=== PATIENT | male | born 1960 | race Caucasian/White ===

== ENCOUNTER 2019-01-12 00:12 | Emergency (ER) | payer MEDICARE, MEDICAID ==
[~2019-01-12] VITALS: Ht 172.7 cm; Wt 54.5 kg
[~2019-01-12 00:12] MED LIST: AZIT250T PO; BLOO1EAC70 MC; IBUP-1984 PO; LANC-509 TP
[2019-01-12] MEDS ORDERED: normal saline 1000ML IV soln IV ONE (01:20)
[2019-01-12 01:45] LABS: CLARITY,URINE CLEAR (Clear); COLOR,URINE YELLOW (Yellow); GLUCOSE, URINE >=1000 mg/dl (Neg); KETONES,URINE NEGATIVE (Neg); LEUKOCYTE ESTERASE ,URINE NEGATIVE (Neg); NITRITES, URINE NEGATIVE (Neg); OCCULT BLOOD,URINE NEGATIVE (Neg); PROTEIN,URINE NEGATIVE (Neg); UROBILINOGEN,URINE 0.2 E.U/dL (0.2-1.0)
[2019-01-12 01:53] LABS: UA COLLECTION TYPE VOIDED
[2019-01-12 01:54] LABS: BACTERIA,URINE NONE SEEN /HPF (Neg); RBC,URINE 0-2 /HPF (0-2); SQUAMOUS EPITHELIAL CELL,UR FEW /LPF (FEW); WBC,URINE 0-4 /HPF (0-4)
[2019-01-12 01:58] LABS: BASOPHILS # (AUTO) 0.1 X10'3 (0-0.2); BASOPHILS % (AUTO) 0.7 % (0-1); EOSINOPHILS # (AUTO) 0.2 X10'3 (0-0.9); EOSINOPHILS % (AUTO) 2.5 % (0-6); HEMATOCRIT 42.8 % (42.0-52.0); HEMOGLOBIN 15.1 g/dl (14.0-17.9); LYMPHOCYTES # (AUTO) 2.9 X10'3 (1.1-4.8); LYMPHOCYTES % (AUTO) 32.7 % (21-51); MEAN CORPUSCULAR HEMOGLOBIN 33.9 PG (27.0-31.0); MEAN CORPUSCULAR HGB CONC 35.2 g/dL (33.0-36.5); MEAN CORPUSCULAR VOLUME 96.5 FL (78-98); MONOCYTES # (AUTO) 0.8 X10'3 (0-0.9); MONOCYTES % (AUTO) 8.9 % (2-12); NEUTROPHILS # (AUTO) 4.9 X10'3 (1.8-7.7); NEUTROPHILS % (AUTO) 55.2 % (42-75); PLATELET COUNT 308 X10'3 (140-440); RED BLOOD COUNT 4.44 X10'6 (4.70-6.10); RED CELL DISTRIBUTION WIDTH 12.5 % (11.5-14.5); WHITE BLOOD COUNT 8.9 X10'3 (4.5-11.0)
[2019-01-12 02:24] LABS: ALANINE AMINOTRANSFERASE 24 U/L (12-78); ALBUMIN 3.4 G/DL (3.4-5.0); ALKALINE PHOSPHATASE 128 IU/L (46-116); ANION GAP 4 (8-16); ASPARTATE AMINO TRANSFERASE 10 U/L (10-37); BILIRUBIN,TOTAL 0.5 MG/DL (0.1-1.0); BLOOD UREA NITROGEN 14 MG/DL (7-18); BUN/CREATININE RATIO 17.3 (5.4-32.0); CHLORIDE 102 MMOL/L (99-107); CREATININE 0.81 MG/DL (0.60-1.10); GLUCOSE 315 MG/DL (70-104); LIPASE 185 U/L (73-393); MAGNESIUM 1.8 MG/DL (1.5-2.4); POTASSIUM 4.3 MMOL/L (3.5-5.1); SODIUM 136 MMOL/L (135-145); TOTAL CARBON DIOXIDE 30.5 MMOL/L (24-32); TOTAL PROTEIN 6.8 G/DL (6.4-8.2); eGFR > 90 ML/MIN
[2019-01-12 04:28] VITALS: BP 163/98
== END 2019-01-12 04:30 | disposition home or self-care (01) ==
LOC: ER 00:13
DX: R10.30 Lower abdominal pain, unspecified (principal); R50.9 Fever, unspecified; K62.5 Hemorrhage of anus and rectum; K59.00 Constipation, unspecified; I10 Essential (primary) hypertension; E11.9 Type 2 diabetes mellitus without complications; F32.9 Major depressive disorder, single episode, unspecified; F12.90 Cannabis use, unspecified, uncomplicated; F17.200 Nicotine dependence, unspecified, uncomplicated; Z79.2 Long term (current) use of antibiotics; Z79.1 Long term (current) use of non-steroidal anti-inflammatories (NSAID); Z79.899 Other long term (current) drug therapy
CPT/HCPCS: 36415; 71045; 74176; 80053; 81001; 82948; 83605; 83690; 83735; 84145; 85025; 87040; 99284; J7030

== ENCOUNTER 2020-01-23 10:42 | Emergency (ER) | payer MEDICARE, MEDICAID ==
[~2020-01-23] VITALS: Ht 172.7 cm; Wt 63.6 kg
[2020-01-23 11:01] VITALS: BP 159/98
[2020-01-23] MEDS ORDERED: ibuprofen tablet 400 MG TABLET PO ONE (11:20)
[2020-01-23] MEDS ORDERED: acetaminophen 325mg tablet PO ONE (11:20)
[2020-01-23] MEDS ORDERED: AMOX500C2 PO (11:42)
== END 2020-01-23 12:30 | disposition home or self-care (01) ==
LOC: ER 10:42
DX: K08.89 Other specified disorders of teeth and supporting structures (principal); I10 Essential (primary) hypertension; E11.9 Type 2 diabetes mellitus without complications; F32.9 Major depressive disorder, single episode, unspecified; F12.90 Cannabis use, unspecified, uncomplicated; Z72.89 Other problems related to lifestyle; Z79.2 Long term (current) use of antibiotics; Z79.899 Other long term (current) drug therapy
CPT/HCPCS: 99283

== ENCOUNTER 2020-11-13 17:05 | Emergency (ER) | payer BC, MEDICAID ==
[~2020-11-13] VITALS: Ht 172.7 cm; Wt 53.3 kg
[2020-11-13] MEDS ORDERED: insulin regular, human 10 units/0.1 ml syringe IV ONE (17:35)
[2020-11-13] MEDS ORDERED: normal saline 1000ML IV soln IVB ONE (17:35)
[2020-11-13 18:00] LABS: BASOPHILS # (AUTO) 0.1 X10'3 (0-0.2); BASOPHILS % (AUTO) 0.8 % (0-1); EOSINOPHILS # (AUTO) 0.2 X10'3 (0-0.9); EOSINOPHILS % (AUTO) 2.8 % (0-6); HEMATOCRIT 43.3 % (42.0-52.0); HEMOGLOBIN 14.9 g/dl (14.0-17.9); LYMPHOCYTES # (AUTO) 2.2 X10'3 (1.1-4.8); LYMPHOCYTES % (AUTO) 30.1 % (21-51); MEAN CORPUSCULAR HEMOGLOBIN 33.4 PG (27.0-31.0); MEAN CORPUSCULAR HGB CONC 34.5 g/dL (33.0-36.5); MEAN CORPUSCULAR VOLUME 96.8 FL (78-98); MEAN PLATELET VOLUME 8.4 FL (7.4-10.4); MONOCYTES # (AUTO) 0.6 X10'3 (0-0.9); MONOCYTES % (AUTO) 8.7 % (2-12); NEUTROPHILS # (AUTO) 4.3 X10'3 (1.8-7.7); NEUTROPHILS % (AUTO) 57.6 % (42-75); PLATELET COUNT 268 X10'3 (140-440); RED BLOOD COUNT 4.47 X10'6 (4.70-6.10); RED CELL DISTRIBUTION WIDTH 12.9 % (11.5-14.5); WHITE BLOOD COUNT 7.4 X10'3 (4.5-11.0)
[2020-11-13 18:12] LABS: ALANINE AMINOTRANSFERASE 21 U/L (12-78); ALBUMIN 3.9 G/DL (3.4-5.0); ALBUMIN/GLOBULIN RATIO 1.1 (1.1-1.5); ALKALINE PHOSPHATASE 155 IU/L (46-116); ANION GAP 6 (8-16); ASPARTATE AMINO TRANSFERASE 8 U/L (10-37); BILIRUBIN,TOTAL 0.6 MG/DL (0.1-1.0); BLOOD UREA NITROGEN 16 MG/DL (7-18); BUN/CREATININE RATIO 13.8 (5.4-32.0); CHLORIDE 99 MMOL/L (99-107); CREATININE 1.16 MG/DL (0.60-1.10); POTASSIUM 4.3 MMOL/L (3.5-5.1); SODIUM 136 MMOL/L (135-145); TOTAL PROTEIN 7.6 G/DL (6.4-8.2); eGFR 65 ML/MIN
[2020-11-13 18:16] LABS: GLUCOSE 534 MG/DL (70-104)
[2020-11-13] MEDS ORDERED: lisinopril 10 MG tablet PO ONE (19:10)
[2020-11-13] MEDS ORDERED: NEED-136 SQ (21:24)
[2020-11-13] MEDS ORDERED: LISI20TA28 PO (21:24)
[2020-11-13] MEDS ORDERED: LANTUS SQ (21:24)
[2020-11-13] MEDS ORDERED: METF500T PO (21:24)
[2020-11-13] MEDS ORDERED: PENI500T2 PO (21:25)
[2020-11-13 22:01] VITALS: BP 126/71
== END 2020-11-13 22:03 | disposition home or self-care (01) ==
LOC: ER 17:05
DX: E11.65 Type 2 diabetes mellitus with hyperglycemia (principal); K08.89 Other specified disorders of teeth and supporting structures; I10 Essential (primary) hypertension; F12.90 Cannabis use, unspecified, uncomplicated; Z76.0 Encounter for issue of repeat prescription; Z72.89 Other problems related to lifestyle; Z79.2 Long term (current) use of antibiotics; Z79.899 Other long term (current) drug therapy
CPT/HCPCS: 36415; 80053; 82948; 85025; 96361; 96374; 99283; J1815; J7030

== ENCOUNTER 2021-05-14 10:29 | Emergency (ER) | payer BC, MEDICAID ==
[~2021-05-14] VITALS: Ht 172.7 cm; Wt 61.4 kg
[~2021-05-14 10:29] MED LIST changes: +NEED-136 SQ
[2021-05-14 10:33] VITALS: BP 169/90
[2021-05-14] MEDS ORDERED: NAPR-56 PO (10:39)
[2021-05-14] MEDS ORDERED: HYDR-3965 PO (10:39)
[2021-05-14] MEDS ORDERED: CHLO118M PO (10:39)
[2021-05-14] MEDS ORDERED: DOXY100C43 PO (10:39)
== END 2021-05-14 10:53 | disposition home or self-care (01) ==
LOC: ER 10:30
DX: K04.7 Periapical abscess without sinus (principal); K08.89 Other specified disorders of teeth and supporting structures; I10 Essential (primary) hypertension; E11.9 Type 2 diabetes mellitus without complications; F32.9 Major depressive disorder, single episode, unspecified; F12.90 Cannabis use, unspecified, uncomplicated; Z72.89 Other problems related to lifestyle; Z79.2 Long term (current) use of antibiotics; Z79.899 Other long term (current) drug therapy
CPT/HCPCS: 99283

== ENCOUNTER 2024-01-13 08:34 | Outpatient (CLI) | payer MEDICARE, MEDICAID ==
[~2024-01-13] VITALS: Ht 172.7 cm; Wt 65.8 kg
[~2024-01-13 08:34] MED LIST changes: +CHLO118M PO
[2024-01-13] MEDS: albuterol 2.5 MG/3 ML nebule NEB ONE (09:11)
[2024-01-13 09:13] VITALS: PULSE 76; RESP 16; O2SAT 97
[2024-01-13 09:27] VITALS: PULSE 86; RESP 16
== END 2024-01-13 23:59 | disposition home or self-care (01) ==
LOC: RT 08:34
PROVIDERS: ATTEND Nurse Practitioner Primary Care
DX: R94.2 Abnormal results of pulmonary function studies (principal); R06.02 Shortness of breath; F17.210 Nicotine dependence, cigarettes, uncomplicated
CPT/HCPCS: 94060; 94760; Z7610

== ENCOUNTER 2025-04-06 11:33 | Outpatient (CLI) | payer MEDICARE, MEDICAID ==
[~2025-04-06] VITALS: Ht 170.2 cm; Wt 61.2 kg
[2025-04-06] MEDS: albuterol 2.5 MG/3 ML nebule NEB ONE (12:37)
[2025-04-06 12:38] VITALS: PULSE 76; RESP 16; O2SAT 97
[2025-04-06 12:49] VITALS: PULSE 86; RESP 16
--- NOTE | 2025-04-06 12:49 | RADIOLOGY REPORT ---
Procedure: CT CT CHEST LOW DOSE Reason for study/Clinical History: NICOTINE DEPENDENCE, CIGARETTES COMPARISON: None TECHNIQUE: Multidetector CT of the chest was performed from the lung apices to the upper abdomen without the use of intravenous contract. Axial, coronal and sagittal multiplanar reformats were performed. Radiation Dose Information: CT Dose: CTDI volume is 1.9 mGy. Dose-length product is 71.5 mGy*cm The dose indicators for CT are the volume Computed Tomography (CT) Dose Index (CTDIvol) and the Dose Length Product (DLP), and are measured in units of mGy and mGy-cm, respectively. These indicators are not patient dose, but values generated from the CT scanner acquisition factors. The report includes radiation exposure data for exposures received during this examination. FINDINGS: Lower neck: Normal thyroid. Lungs: Biapical scarring. No focal consolidation. No suspicious pulmonary nodules Heart/Vascular Structures: Normal heart size. No pericardial effusion. Lymph Nodes: No adenopathy Pleura: No pleural effusion or significant pneumothorax. Musculoskeletal: No acute osseous abnormality. Mild multilevel degenerative changes of the spine. Soft tissues: Normal. Upper abdomen: Limited portions of the upper abdomen are unremarkable. IMPRESSION: No suspicious pulmonary nodule. LUNG RADS Category 1: Continue annual screening with LDCT
--- NOTE | 2025-04-07 16:08 | PROCEDURE NOTE - Respiratory ---
Procedure Note-Respiratory Providers to Copies To 1: FERNANDA MONROE NP Procedure Name: This is a spirometry study dated April 06, 2025. The spirometry study was performed both before and after inhaled bronchodilator. Spirometry measurements: The forced vital capacity is mildly reduced. The FEV1 is in the lower range of normal. The FEV1 ratio is elevated. All of the measured flow rates are in the normal range. After bronchodilator was administered, some of the flow rates show minimal improvement. Conclusion: This study shows mild abnormality. There is evidence for mild restrictive ventilatory defect. There is not much evidence to suggest obstructive lung disease. Even though this patient has a prolonged smoking history, there is very little evidence to suggest smoking-related COPD. Interstitial lung disease commonly gives restriction deficits. Restrictive lung disease is also seen in diseases involving the pleura ,chest wall ,or diaphragm. We have a study from 2023 for comparison. Over the past one year the patient shows some deterioration in both the FEV1 and the forced vital capacity. Close pulmonary follow-up is recommended for this patient with abnormal pulmonary physiology. MARIAM COSME MD Apr 07, 2025 16:08
== END 2025-04-06 23:59 | disposition home or self-care (01) ==
LOC: RAD 11:33
PROVIDERS: ATTEND Nurse Practitioner Primary Care
DX: Z12.2 Encounter for screening for malignant neoplasm of respiratory organs (principal); J98.4 Other disorders of lung; F17.210 Nicotine dependence, cigarettes, uncomplicated; R06.02 Shortness of breath; M47.814 Spondylosis without myelopathy or radiculopathy, thoracic region
CPT/HCPCS: 71271; 94060; 94760